=== PATIENT | female | born 1990 | race African-American/Black ===

== ENCOUNTER → 2021-01-16 | Outpatient (CLI) | payer MEDICAID ==
[2021-01-16 10:56] LABS: Basophils # (auto) 0 10 ^3/uL (0-0.2); Basophils % (auto) 0.3 % (0.0-2.0); Eosinophils # (auto) 0.1 10 ^3/uL (0-0.8); Eosinophils % (auto) 1.4 % (0.0-7.0); Hematocrit 40.7 % (36.0-46.0); Hemoglobin 13.6 g/dL (12.2-16.2); Lymphocytes # (auto) 1.6 10 ^3/uL (0.4-5.4); Lymphocytes % (auto) 26.3 % (10.0-50.0); Mean Corpuscular Hemoglobin 30.3 pg (28.0-32.0); Mean Corpuscular Hgb Conc. 33.5 g/dL (32.0-36.0); Mean Corpuscular Volume 90.7 fL (80.0-100.0); Monocytes # (auto) 0.5 10 ^3/uL (0-1.3); Monocytes % (auto) 8.6 % (0.0-12.0); Neutrophils # (auto) 3.9 10 ^3/uL (1.6-8.6); Neutrophils % (auto) 63.4 % (37.0-80.0); Red Blood Cells 4.49 10^6/uL (4.0-5.20); Red Cell Distribution Width 13.3 % (11.8-14.3); White Blood Cell 6.1 10^3/uL (4.4-10.8)
[2021-01-16 11:57] LABS: Potassium 4.8 mmol/L (3.5-5.1)
[2021-01-16 12:03] LABS: Albumin 3.9 g/dL (3.4-5.0); BUN/Creatinine Ratio 7.9; Bilirubin, Total 0.7 mg/dL (0.2-1.0); Calcium 9.1 mg/dL (8.5-10.1); Total Protein 8.3 g/dL (6.4-8.2)
[2021-01-16 12:21] LABS: Beta HCG, Quantitative < 1 mlU/mL (1-3); Thyroid Stimulating Hormone 0.71 uIU/mL (0.358-3.74)
== END | disposition home or self-care (01) ==
LOC: LAB 10:42
PROVIDERS: ATTEND Nurse Practitioner Family
DX: N91.2 Amenorrhea, unspecified (principal); G40.804 Other epilepsy, intractable, without status epilepticus; F41.9 Anxiety disorder, unspecified; Z83.3 Family history of diabetes mellitus
CPT/HCPCS: 36415; 80053; 83036; 84443; 84702; 85025

== ENCOUNTER 2021-02-15 19:54 | Emergency (ER) | payer MEDICAID ==
[~2021-02-15] VITALS: Ht 170.2 cm; Wt 59.0 kg
[2021-02-15 21:57] VITALS: BP 103/64
== END 2021-02-16 07:19 | disposition home or self-care (01) ==
LOC: ER 19:54
DX: G40.909 Epilepsy, unspecified, not intractable, without status epilepticus (principal); Z76.0 Encounter for issue of repeat prescription

== ENCOUNTER 2024-04-27 11:37 | Emergency (ER) | payer MEDICAID ==
[~2024-04-27] VITALS: Ht 157.5 cm; Wt 60.0 kg
[2024-04-27 12:46] LABS: Urine Bacteria None Seen /hpf (None Seen)
[2024-04-27 13:17] LABS: Urine Blood Negative /uL (Negative); Urine Clarity Clear (Clear); Urine Color Light-Yellow (Yellow); Urine Mucus FEW (None Seen); Urine Protein, UAD Negative (Negative); Urine Specific Gravity 1.017 (1.001-1.035); Urine Urobilinogen Normal (Negative); Urine WBC 24 /hpf (0 - 5); Urine pH 5.5 (5.0-9.0)
[2024-04-27 13:45] LABS: Vaginal Trichomonas Not Present
[2024-04-27 13:46] LABS: Vaginal Bacteria Many
[2024-04-27 13:47] LABS: Vaginal Clue Cells Many; Vaginal Epithelial Cells Many
[2024-04-27 13:51] VITALS: BP 110/62; PULSE 75; RESP 16; TEMP 98.2; O2SAT 100
[2024-04-27] MEDS ORDERED: MET075VC VG (13:59)
[2024-04-27] MEDS ORDERED: NITR-87 PO (13:59)
[2024-04-27] MEDS: FLUCONAZOLE 100 MG TAB PO ONE (14:13)
[2024-04-27] MEDS: cefTRIAXone SOD 1,000 MG VL IM ONE (14:13)
[2024-04-28 18:06] LABS: Chlamydia Trachomatis, NAA Negative (Negative); Neisseria gonorrhoeae, NAA Negative (Negative)
== END 2024-04-27 14:33 | disposition home or self-care (01) ==
LOC: ER 11:37
DX: B37.31 Acute candidiasis of vulva and vagina (principal); B96.89 Other specified bacterial agents as the cause of diseases classified elsewhere; N39.0 Urinary tract infection, site not specified; R56.9 Unspecified convulsions; Z79.899 Other long term (current) drug therapy
CPT/HCPCS: 36415; 81001; 81025; 84702; 87210; 87491; 87591; 96372; 99283; J0696